=== PATIENT | female | born 1990 | race American Indian/Alaskan Native ===

== ENCOUNTER 2017-10-17 11:47 | Emergency (ER) | payer BC ==
[2017-10-17 12:06] VITALS: BP 130/83
[2017-10-17] MEDS ORDERED: NORCO 7.5/325 PO ONE (13:38)
[2017-10-17] MEDS ORDERED: ZOFRAN ODT PO ONE (13:38)
--- NOTE | 2017-10-17 13:42 | Emergency Department Report ---
Minor Respiratory - HPI Chief Complaint: Upper Respiratory Infection Stated Complaint: FLU SX Time Seen by Provider: 10/17/17 13:13 Duration: 2 Days Severity: moderate Minor Respiratory: Yes Able to Tolerate Fluids, Yes Fever, No Rhinorrhea, No Sore Throat, No Ear Pain, No Cough, No Sick Contacts, No Hemoptysis, No Chest Pain, No Shortness of Breath Other History: Patient is a 27-year-old [place] female who is presenting with body aches very mild cough headache present for about 3 days. States she's also has mild nausea vomiting and diarrhea as well. ED Review of Systems ROS: Stated complaint: FLU SX Other details as noted in HPI Comment: All other systems reviewed and negative ED Past Medical Hx - Past Medical History Previous Medical History?: No - Surgical History Past Surgical History?: No - Social History Smoking Status: Never Smoker Substance Use Type: None - Medications Home Medications: Home Medications Medication Instructions Recorded Confirmed Last Taken Type Diphenoxylate HCl/Atropine 1 each PO BID PRN #6 tablet 10/17/17 Unknown Rx [Lomotil 2.5-0.025 mg Tablet] HYDROcodone/APAP 7.5-325 [Ciales 1 each PO ONCE #12 tablet 10/17/17 Unknown Rx 7.5-325 mg TAB] Ibuprofen [Motrin] 600 mg PO Q8H PRN #20 tablet 10/17/17 Unknown Rx Ondansetron [Zofran ODT TAB] 4 mg PO ONCE PRN #10 tab.rapdis 10/17/17 Unknown Rx Minor Respiratory Exam - Exam General: Vital signs noted. No distress. Alert and acting appropriately. HEENT: Yes Moist Mucous Membranes, No Pharyngeal Erythema, No Pharyngeal Exudates, No Rhinorrhea, No Conjuctival Injection, No Frontal Tenderness, No Maxillary Tenderness Ear: Neither TM Bulge, Neither TM Erythema, Neither EAC Pain, Neither EAC Discharge Neck: Yes Supple, No Adenopathy Lungs: Yes Good Air Exchange, No Wheezes, No Ronchi, No Stridor, No Cough, No Labored Respirations, No Retractions, No Use of Accessory Muscles, No Other Abnormal Lung Sounds Heart: Yes Regular, No Murmur Abdomen: Yes Normal Bowel Sounds, No Tenderness, No Peritoneal Signs Skin: No Rash, No Edema Neurologic: Alert and oriented, no deficits. Musculoskeletal: Unremarkable. ED Course Vital Signs 10/17/17 12:02 Temperature 98.7 F Pulse Rate 96 H Respiratory 16 Rate Blood Pressure 130/83 O2 Sat by Pulse 99 Oximetry ED Medical Decision Making - Medical Decision Making Patient will be treated for flulike illness and will be discharged home Critical care attestation.: If time is entered above; I have spent that time in minutes in the direct care of this critically ill patient, excluding procedure time. ED Disposition Clinical Impression: Influenza Disposition: DC-01 TO HOME OR SELFCARE Is pt being admited?: No Does the pt Need Aspirin: No Condition: Stable Instructions: Influenza (ED) Prescriptions: Diphenoxylate HCl/Atropine [Lomotil 2.5-0.025 mg Tablet] 1 each PO BID PRN #6 tablet PRN Reason: Diarrhea HYDROcodone/APAP 7.5-325 [Ciales 7.5-325 mg TAB] 1 each PO ONCE #12 tablet Ibuprofen [Motrin] 600 mg PO Q8H PRN #20 tablet PRN Reason: Pain Ondansetron [Zofran ODT TAB] 4 mg PO ONCE PRN #10 tab.rapdis PRN Reason: Nausea Referrals: PRIMARY CARE, [Primary Care Provider] - 3-5 Days
== END 2017-10-17 13:49 | disposition home or self-care (01) ==
LOC: ED 11:47
DX: J11.1 Influenza due to unidentified influenza virus with other respiratory manifestations (principal)
CPT/HCPCS: 99282; Q0162